=== PATIENT | female | born 1955 | race Caucasian/White ===

== ENCOUNTER 2017-06-29 13:12 | Emergency (ER) | payer MEDICAID ==
--- NOTE | 2017-06-29 13:38 | ED PDOC ---
Arrival/HPI - General Time Seen by Provider: 06/29/17 13:37 Historian: Patient - History of Present Illness Narrative History of Present Illness (Text): 06/29/17 13:37 61 y/o female, pmh including htn/hyperlipidemia/hypothyroidism, allergic to penicillin/aspirin/toradol?, c/o Lt. leg pain x 10 days. Pt. stated that she has chronic lt. lower extremity pain, started about 10 days ago on the lt. ankle /knee, no itching, no numbness or tingling, no chest pain or shortness of breath , no night sweat, no rash, no dizziness, no change in vision, no palpitation, no other medical or psychological complaints. Past Medical History - Provider Review Nursing Documentation Reviewed: Yes - Infectious Disease Hx of Infectious Diseases: None - Tetanus Immunization Tetanus Immunization: Unknown - Cardiac Hx Peripheral Edema: Yes - Pulmonary Hx Asthma: Yes - Neurological Hx Dizziness: Yes - HEENT Hx HEENT Disorder: Yes (eyeglasses) - Renal Hx Kidney Stones: Yes - Endocrine/Metabolic Hx Hypothyroidism: Yes - Hematological/Oncological Hx Blood Transfusions: No Hx Blood Transfusion Reaction: No - Integumentary Other/Comment: pt c/o chronic rash to lower extremities that itches. Pt does not have a rash at present time. - Musculoskeletal/Rheumatological Hx Falls: No - Gastrointestinal Hx Gastroesophageal Reflux: Yes - Psychiatric Hx Depression: Yes Hx Emotional Abuse: No Hx Physical Abuse: No Hx Substance Use: No - Surgical History Hx Hysterectomy: Yes - Anesthesia Hx Anesthesia Reactions: No Hx Malignant Hyperthermia: No - Suicidal Assessment Feels Threatened In Home Enviroment: No Family/Social History - Physician Review Nursing Documentation Reviewed: Yes Family/Social History: Unknown Family HX Smoking Status: Never Smoked Hx Alcohol Use: No Hx Substance Use: No Hx Substance Use Treatment: No Allergies/Home Meds Allergies/Adverse Reactions: Allergies ketorolac tromethamine [From Toradol] Allergy (Verified 02/28/16 21:19) VOMITING Penicillins Allergy (Verified 02/28/16 21:19) RASH aspirin Adverse Reaction (Verified 02/28/16 21:19) RASH Home Medications: Home Meds Medication Instructions Recorded Confirmed Clonidine HCl [Catapres] 0.1 mg PO BID 05/18/15 05/19/15 Hydrochlorothiazide [HCTZ] 25 mg PO DAILY 05/18/15 05/19/15 Losartan Potassium 100 mg PO DAILY 05/18/15 05/19/15 Nifedipine [Nifedical Xl] 30 mg PO DAILY 05/18/15 05/19/15 cloNIDine [Catapres] 0.1 mg PO BID 05/18/15 05/19/15 Review of Systems - Review of Systems Constitutional: absent: Fatigue, Fevers Eyes: absent: Vision Changes ENT: absent: Hearing Changes Respiratory: absent: SOB, Cough Cardiovascular: absent: Chest Pain Gastrointestinal: absent: Abdominal Pain, Nausea, Vomiting Musculoskeletal: Arthralgias. absent: Back Pain, Joint Swelling Skin: absent: Rash, Pruritis Neurological: absent: Headache, Dizziness Psychiatric: absent: Anxiety, Depression Physical Exam Vital Signs Reviewed: Yes Vital Signs Temp Pulse Resp BP Pulse Ox 06/29/17 13:42 98.0 F 78 18 137/76 97 06/29/17 13:12 98 F 76 18 137/76 97 Temperature: Afebrile Blood Pressure: Normal Pulse: Regular Respiratory Rate: Normal Appearance: Positive for: Well-Appearing, Non-Toxic, Comfortable Pain Distress: Moderate Mental Status: Positive for: Alert and Oriented X 3 - Systems Exam Head: Present: Atraumatic, Normocephalic Pupils: Present: PERRL Extroacular Muscles: Present: EOMI Conjunctiva: Present: Normal Mouth: Present: Moist Mucous Membranes Neck: Present: Normal Range of Motion Respiratory/Chest: Present: Clear to Auscultation, Good Air Exchange. No: Respiratory Distress, Accessory Muscle Use Cardiovascular: Present: Regular Rate and Rhythm, Normal S1, S2. No: Murmurs Abdomen: No: Tenderness, Distention, Peritoneal Signs Back: Present: Normal Inspection Upper Extremity: Present: Normal Inspection. No: Cyanosis, Edema Lower Extremity: Present: Normal Inspection, Other (LLE: mild swelling to the lt. ankle region and mild +ttp, negative manzo signs, no cellulitis or streaking, no ulcers, +DPPT pulses, capillary refill< 2 seconds, +varicose vein noted, neurovascular intact, FROM without limitation, sensation intact, motor 5/ 5. ). No: Edema Neurological: Present: GCS=15, Speech Normal, Motor Func Grossly Intact, Gait Normal, Memory Normal Skin: Present: Warm, Dry, Normal Color. No: Rashes Psychiatric: Present: Alert, Oriented x 3, Normal Insight, Normal Concentration Medical Decision Making ED Course and Treatment: 06/29/17 13:57 -Lt. knee and ankle xray -LLE venuous doppler -percocet 06/29/17 14:53 -LLE Venuous doppler: as per preliminary report, no acute DVT -Lt. knee xray: Two views of the left knee reveal degenerative changes with compartment narrowing and mild spurring. But no fracture is seen. No lytic process is noted. No joint effusion is seen. -Lt. ankle xray: No fracture is seen. No dislocation is noted. No ankle mortise widening is noted. Talar dome is normal in outline. Subtalar joint is unremarkable. Very mild soft tissue swelling is seen. Vascular calcification is noted in the soft tissues. Small calcaneal spurs are noted. No ankle joint effusion is seen. Visualized tarsal bones and metatarsals are intact. -Pt. is walking with normal gait and posture with her cane, no focal neulogical deficits, pain decreased, will discharge home. -Discharge home with paula wrap, stocking compression, tylenol for the pain, elevation, follow up with your own pmd and orthopedic within 2 days, return to the ER for any new or worsening signs or symptoms. - RAD Interpretation Radiology Orders: 06/29/17 13:53 ANKLE LEFT 3 VIEWS ROUTINE [RAD] Stat KNEE LEFT 2 VIEWS (AP & LAT) [RAD] Stat DUPLEX LOWER EXTRM VEIN LEFT [US] Stat Lt. ankle xray: No fracture is seen. No dislocation is noted. No ankle mortise widening is noted. Talar dome is normal in outline. Subtalar joint is unremarkable. Very mild soft tissue swelling is seen. Vascular calcification is noted in the soft tissues. Small calcaneal spurs are noted. No ankle joint effusion is seen. Visualized tarsal bones and metatarsals are intact. IMPRESSION: No fracture. --- Lt. knee xray: HISTORY: lt. knee pain, chronic COMPARISON: No prior TECHNIQUE: Two views of the left knee were performed. FINDINGS: Two views of the left knee reveal degenerative changes with compartment narrowing and mild spurring. But no fracture is seen. No lytic process is noted. No joint effusion is seen. LLE Venuous Doppler: as per preliminary report, no acute DVT HISTORY: LLE pain . PRIORS: None. FINDINGS: 2-D, color and duplex Doppler analysis of the lower extremity venous circulation using routine protocol from the femoral veins through the popliteal veins. Left posterior tibial vein and left peroneal vein were also identified. Venous compressibility: Normal. Flow and augmentation patterns: Normal. Visualized veins upper third of calf: Normal. Mcbride cyst: None. IMPRESSION: No sonographic or Doppler evidence for DVT in left lower extremity. Manager Of Operations: Radiologist - Medication Orders Current Medication Orders: Discontinued Medications Oxycodone/Acetaminophen (Percocet 5/325 Mg Tab) 1 tab PO STAT STA Stop: 06/29/17 13:54 Last Admin: 06/29/17 13:57 Dose: 1 tab [facility] Pain Assessment Document 06/29/17 13:57 SRE (Rec: 06/29/17 13:58 SRE [id number]) Pain Reassessment Is this a pain reassessment? Yes Sleep Is patient sleeping during reassessment? No Presence of Pain Presence of Pain Yes Pain Scale Used Pain Scale Used Numeric Location Left, Right or Bilateral Left Pain Location Body Site Leg Description Description Constant - PA / SURVEY RESEARCHER / Resident Statement /DO has reviewed & agrees with the documentation as recorded. Disposition/Present on Arrival - Present on Arrival Any Indicators Present on Arrival: No History of DVT/PE: No History of Uncontrolled Diabetes: No Urinary Catheter: No History of Decub. Ulcer: No History Surgical Site Infection Following: None - Disposition Have Diagnosis and Disposition been Completed?: Yes Diagnosis: Generalized osteoarthritis, Leg pain, Varicose vein of leg Disposition: HOME/ ROUTINE Disposition Time: 13:58 Patient Plan: Discharge Patient Problems: Current Active Problems Problem Status Onset Generalized osteoarthritis Acute Leg pain Acute Varicose vein of leg Acute Condition: GOOD Additional Instructions: -Discharge home with paula wrap, stocking compression, tylenol for the pain, elevation, follow up with your own pmd and orthopedic within 2 days, return to the ER for any new or worsening signs or symptoms. Prescriptions: Acetaminophen 2 tab PO QID PRN #30 tab PRN Reason: Other Comp.stocking,Knee,Long,X-Lrg [T.e.d. Anti-Embolism Stocking] 1 each MC DAILY # 1 each Referrals: Nayana Lozano DO [Primary Care Provider] - Follow up with primary Calderon Stanley DO [Staff Provider] - Follow up with primary Forms: WORK NOTE
[2017-06-29 13:41] VITALS: BMI 39.4
[2017-06-29 13:42] VITALS: RESP 18; TEMP 98; O2SAT 97
[2017-06-29] MEDS ORDERED: Oxycodone/Acetaminophen 5/325 mg Tab PO STA (13:53)
--- NOTE | 2017-06-29 14:44 | RAD ---
PROCEDURE: Left ankle x-ray HISTORY: lt. ankle pain, chronic COMPARISON: No prior TECHNIQUE: Three views of the left ankle were performed. FINDINGS: No fracture is seen. No dislocation is noted. No ankle mortise widening is noted. Talar dome is normal in outline. Subtalar joint is unremarkable. Very mild soft tissue swelling is seen. Vascular calcification is noted in the soft tissues. Small calcaneal spurs are noted. No ankle joint effusion is seen. Visualized tarsal bones and metatarsals are intact. IMPRESSION: No fracture.
--- NOTE | 2017-06-29 14:46 | RAD ---
PROCEDURE: Left knee x-ray HISTORY: lt. knee pain, chronic COMPARISON: No prior TECHNIQUE: Two views of the left knee were performed. FINDINGS: Two views of the left knee reveal degenerative changes with compartment narrowing and mild spurring. But no fracture is seen. No lytic process is noted. No joint effusion is seen. IMPRESSION:
--- NOTE | 2017-06-29 15:09 | US ---
HISTORY: LLE pain . PRIORS: None. FINDINGS: 2-D, color and duplex Doppler analysis of the lower extremity venous circulation using routine protocol from the femoral veins through the popliteal veins. Left posterior tibial vein and left peroneal vein were also identified. Venous compressibility: Normal. Flow and augmentation patterns: Normal. Visualized veins upper third of calf: Normal. Mcbride cyst: None. IMPRESSION: No sonographic or Doppler evidence for DVT in left lower extremity.
[2017-06-29 15:14] VITALS: BP 129/76; PULSE 79
== END 2017-06-29 15:18 | disposition home or self-care (01) ==
LOC: ED 13:12
DX: I83.92 Asymptomatic varicose veins of left lower extremity (principal); M79.662 Pain in left lower leg; M15.9 Polyosteoarthritis, unspecified; E78.5 Hyperlipidemia, unspecified; I10 Essential (primary) hypertension; E03.9 Hypothyroidism, unspecified

== ENCOUNTER 2018-03-11 12:28 | Outpatient (CLI) | payer MEDICAID | END 2018-03-11 12:29 | disposition home or self-care (01) | LOC: RAD 12:28 ==